=== PATIENT | female | born 1985 | race Caucasian/White ===

== ENCOUNTER 2022-04-10 12:28 | Emergency (ER) | payer BC ==
[~2022-04-10] VITALS: Ht 167.6 cm; Wt 68.6 kg
[2022-04-10 12:48] VITALS: BP 122/68
--- NOTE | 2022-04-10 13:00 | NUR ---
C/O 7/10 SORE THROAT, COUGH, RUNNY NOSE X 3 WEEKS. PMH: DENIES
[2022-04-10] MEDS ORDERED: BENZ-300 MM (14:57)
[2022-04-10] MEDS ORDERED: PROM118S5 PO (14:57)
[2022-04-10] MEDS ORDERED: SUD30 PO (14:57)
--- NOTE | 2022-04-10 15:02 | NUR ---
Patient discharged with v/s stable. Written and verbal after care instructions given and explained. Patient alert, oriented and verbalized understanding of instructions. Ambulatory with steady gait. All questions addressed prior to discharge. ID band removed. Patient advised to follow up with PMD. Rx of Cepacol, Promethazine, Sudafed given. Patient educated on indication of medication including possible reaction and side effects. Opportunity to ask questions provided and answered.
== END 2022-04-10 15:02 | disposition home or self-care (01) ==
LOC: MED 12:28
DX: J06.9 Acute upper respiratory infection, unspecified (principal)
CPT/HCPCS: 71046; 99283